=== PATIENT | female | born 1935 | race Caucasian/White ===

== ENCOUNTER 2025-06-15 11:33 | Outpatient (AMB) | payer MEDICARE, SELFPAY ==
--- NOTE | 2025-06-15 11:34 | AM.OFFWIN_ITS ---
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 She also complains of general fatigue and nasal congestion for a week and started mildly coughing today. Allergies amoxicillin Allergy (Mild, Verified 06/15/25 11:49) rash Do you need a note to return to daycare/school/sports/work: No HPI HPI Comments History of Present Illness Details History of Present Illness The patient is an 89 year old female with a past medical history of dementia, hypertension, hyperlipidemia, CKD stage 3, type 2 diabetes mellitus, COPD who presents with her daughter for eye symptoms and congestion. - The patient has been feeling unwell fo r about a week, initially with a head cold that seemed to subside. - She reports rhinorrhea, congestion, an d a nonproductive cough. - Over the past two to three days, she d eveloped itchy, watery eyes, red eyes. - She denies any fevers, chills, or shor tness of breath. - She denies any nausea, vomiting or nikita rrhea. - She denies eye pain or changes in visi on. She denies any FB sensation of the eyes. - She wears reading glasses, does not we ar any contact lenses. - The patient's other daughter, who she was recently in contact with, had conjunctivitis and a sinus infection. - She took Tylenol initially for her sym ptoms, however has since stopped taking it and has not taken any other medications. Review of Systems Constitutional: Negative for fevers or chills HENT: Reports congestion, rhinorrhea. Reports watery itchy red eyes. Denies eye pain or changes in vision. Denies sore throat, ear pain Respiratory: Reports cough. Denies shortness of breath, chest tightness, wheezing Cardiac: Negative for chest pain Gastrointestinal: Negative for abdominal pain, nausea, vomiting, diarrhea, Musculoskeletal: Negative for myalgias, Physical Exam General Appearance: Normal appearance, well developed. No acute distress HEENT: PEERLA. EOM intact. Conjunctival injection with mucopurulent discharge noted bilaterally. Eyelids inverted, No obvious FB noted. External ears WNL with moderate ear wax noted bilaterally. Clear nasal drainage noted. Postnasal drip observed. Oropharynx clear without erythema or exudate. Pulmonary: No respiratory distress. Clear to auscultation bilaterally. Speaking in full sentences Cardiac: Regular rate and rhythm. No murmurs. Musculoskeletal: Moving all extremities spontaneously and against gravity Mental Status: Alert and Oriented x 3 Psychiatric: Normal mood. Normal affect. Physical Exam Vital Signs: Last Vital Signs Temp 98 F 06/15/25 11:38 Pulse 64 06/15/25 11:38 Resp 16 06/15/25 11:38 BP 131/62 06/15/25 11:38 Pulse Ox 97 06/15/25 11:38 Oxygen Delivery Method Room Air 06/15/25 11:38 BMI result Body Mass Index 22.5 Assessment & Plan Assessment & Plan (1) Bacterial conjunctivitis of both eyes: Code(s): H10.9 - Unspecified conjunctivitis (2) Upper respiratory infection: Code(s): J06.9 - Acute upper respiratory infection, unspecified Qualifiers: URI type: unspecified URI Qualified Code(s): J06.9 - Acute upper respiratory infection, unspecified Plan Assessment and Plan 1. Bacterial Conjunctivitis - The plan is to start Polytrim antibiotic eye drops, one drop in both eyes four times a day for one week. - The patient was counseled on the contagious nature of the condition, emphasizing hand hygiene, avoiding touching the eyes, and washing personal items like towels and pillowcases. - The use of warm compresses 3-4 times a day for 10-15 minutes was also recommended. - If symptoms do not improve in 48 hours or if vision worsens, the patient is to return for re-evaluation. 2. Upper Respiratory Infection - The patient has symptoms of an upper respiratory infection including congestion and postnasal drip, with clear lungs on examination. - Patient symptoms have been improving. - The plan is to continue supportive care, including rest and staying well- hydrated. - The patient should return if she develops fever, worsening cough, or trouble breathing. Patient was informed and verbally consented to the use of an ambient scribe for clinic note documentation during the visit. Medications: New polymyxin B sulf-trimethoprim 10,000 unit- 1 mg/mL while awake 1 drp ophthalmic (eye) QID 10 mL 0RF 7 days Coding Level of Care Code New Pt Level 3 (10322) Diagnoses Bacterial conjunctivitis of both eyes H10.9 Upper respiratory tract infection, unspecified type J06.9 URI type: unspecified URI
[2025-06-15 11:38] VITALS: BP 131/62; PULSE 64; RESP 16; TEMP 36.6; O2SAT 97; BMI 22.5
--- OUTSIDE RECORDS SUMMARY | 2025-06-15 15:17 | XMS_ITS | Clinical Summary ---
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 Role Phone Jorge Barlow MD Primary Care Provider [phone] Encounters Date Type Department Care Team Description 05/18/2025 2:53 PM EST - 05/18/2025 11:59 PM EST Hospital Encounter [facility] Ultrasound [address] [place] [address] Left leg swelling Discharge Disposition: Home or Self Care from Last 3 Months Family History Medical History Relation Name Comments CABG Brother Heart attack Brother Prostate cancer Brother Heart attack Father Breast cancer Mother Relation Name Status Comments Brother Father Mother Social History Tobacco Use Types Packs/Day Years Used Date Smoking Tobacco: Never Smokeless Tobacco: Never Alcohol Use Standard Drinks/Week Comments No 0 (1 standard drink = 0.6 oz pur e alcohol) Comments Unknown Sex and Gender Information Value Date Recorded Sex Assigned at Not on file Legal Sex Female 1:10 PM EST Gender Identity Not on file Sexual Orientation Not on file Plan of Treatment Health Maintenance Due Date Last Done Comments DTaP,Tdap,and Td Vaccines (1 - Tdap) 1954 RSV Immunization Adult Patients (1 - 1-dose 75+ series) 2012 Pneumococcal Vaccine: 50+ Years (2 of 2 - PCV) 05/28/2018 05/28/2017 Cholesterol Screening (Lipid Panel) 05/29/2022 Falls Risk Assessment 05/29/2022 Medicare Annual Wellness Visit 05/29/2022 Osteoporosis Screening (Bone Density Screening) 05/29/2022 Social Influencers of Health Screening 05/29/2022 Depression Screening 07/01/2024 COVID-19 Vaccine ( season) 2025 04/18/2021, 08/25/2020, 08/04/2020 Zoster Vaccines Completed 10/10/2020, 05/18/2020 Influenza Vaccine Completed 04/22/2025, , 04/08/2023, Additional history exists HIB Vaccines Aged Out No longer eligi ble based on patient's age to complete this topic HPV Vaccines Aged Out No longer eligi ble based on patient's age to complete this topic Hepatitis A Vaccines Aged Out No long er eligible based on patient's age to complete this topic Hepatitis B Vaccines Aged Out No long er eligible based on patient's age to complete this topic IPV Vaccines Aged Out No longer eligi ble based on patient's age to complete this topic MMR Vaccines Aged Out No longer eligi ble based on patient's age to complete this topic Meningococcal ACWY Vaccine Aged Out N o longer eligible based on patient's age to complete this topic Meningococcal B Vaccine Aged Out No l onger eligible based on patient's age to complete this topic RSV Immunization Patients Under 20 months Aged Out No longer eligible based on patient's age to complete this topic Varicella Vaccines Aged Out No longer eligible based on patient's age to complete this topic Procedures Procedure Name Priority Date/Time Associated Diagnosis Comments VAS US DUPLEX LOWER EXT VENOUS LEFT Routine 05/18/2025 3:24 PM EST Left leg swelling from Last 3 Months Results * Vascular US duplex lower extremity venous left (05/18/2025 3:24 PM EST) Anatomical Region Laterality Modality Vascular, Abdomen Ultrasound 05/18/2025 3:44 PM EST Impressions 05/18/2025 3:45 PM EST NO LEFT LOWER EXTREMITY DEEP VENOUS THROMBOSIS. -------- FINAL REPORT -------- Dictated By: BRIA NOLAN Dictated Date: 05/18/2025 15:44 ET Assigned Physician: BRIA NOLAN Reviewed and Electronically Signed By: BRIA NOLAN Signed Date: 05/18/2025 15:45 ET Workstation ID: [id number] Transcribed By: Self Edit Transcribed Date: 05/18/2025 15:44 ET Narrative 05/18/2025 3:45 PM EST PROCEDURE: VAS US DUPLEX LOWER EXT VENOUS LEFT INDICATION: Swelling TECHNIQUE: 2-D and color Doppler imaging of the left lower extremity venous vasculature with compression and augmentation maneuvers. COMPARISON: No priors available. FINDINGS: There is normal flow, compression, and augmentation from the common femoral through the popliteal vein. Visualized calf veins are patent Procedure Note Bria Nolan MD - 05/18/2025 PROCEDURE: VAS US DUPLEX LOWER EXT VENOUS LEFT INDICATION: Swelling TECHNIQUE: 2-D and color Doppler imaging of the left lower extremityvenous vasculature with compression and augmentation maneuvers. COMPARISON: No priors available. FINDINGS: There is normal flow, compression, and augmentation from the commonfemoral through the popliteal vein. Visualized calf veins are patent IMPRESSION: NO LEFT LOWER EXTREMITY DEEP VENOUS THROMBOSIS. 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
== END 2025-06-15 12:16 | disposition home or self-care (01) ==
PROVIDERS: PCP Student in an Organized Health Care Education/Training Program; Visit Provider Family Medicine
DX: H10.9 Unspecified conjunctivitis (principal); J06.9 Acute upper respiratory infection, unspecified

== ENCOUNTER → 2025-06-15 11:33 | Outpatient (BNVA) | payer MEDICARE, SELFPAY | PROVIDERS: PCP Student in an Organized Health Care Education/Training Program; Visit Provider Family Medicine | DX: J06.9 Acute upper respiratory infection, unspecified (principal); H10.9 Unspecified conjunctivitis | CPT/HCPCS: 99202 ==

== ENCOUNTER 2025-06-21 13:15 | Outpatient (REF) | payer MEDICARE, SELFPAY ==
[2025-06-21 18:12] LABS: MANUAL DIFF FLAG NO
[2025-06-21 18:21] LABS: Hematocrit 36.0 % (37.0-47.0); Hemoglobin 11.7 g/dl (12.0-16.0); Imm Gran Abs Auto 0.04 X10*3/uL (0.00-0.03); Imm Gran Pct Auto 0.5 % (0.0-0.4); Lymphocytes Absolute Auto 1.8 X10*3/uL (1.2-4.9); Mean Corpuscular HGB Conc 32.5 g/dl (31.0-35.0); Mean Corpuscular Hemoglobin 28.7 pg (27.0-33.0); Mean Corpuscular Volume 88.5 fL (80.0-98.0); NRBC Abs Auto 0.000 X10*3/uL (0.0-0.012); NRBC Pct Auto 0.0 /100WBC (0.0-0.2); Platelet Count 341 X10*3/uL (160-400); Red Blood Count 4.07 X10*6/uL (4.20-5.50); White Blood Count 8.6 X10*3/uL (4.8-10.8)
[2025-06-21 18:48] LABS: Microalbum/Creatinine Ratio Ur 61.1 ug/mg cr (<30)
[2025-06-21 18:52] LABS: Appearance Urine Clear; Glucose Urine UA Negative (Negative); PH 6.5 (5.0-9.0); Specific Gravity - Urine <= 1.005 (1.005-1.025); UMIC TRIGGER UACC YES
[2025-06-21 18:54] LABS: Alanine Aminotransferase 14 U/L (0-31); Albumin Level 4.3 g/dL (3.5-5.0); Alkaline Phosphatase 110 U/L (39-117); Anion Gap 15 (12-20); Aspartate Amino Transferase 22 U/L (5-31); Blood Urea Nitrogen 20 mg/dL (9-16); Calcium 9.0 mg/dL (8.4-10.2); Carbon Dioxide 26 mmol/L (22-29); Chloride 104 mmol/L (96-108); Cholesterol 125 mg/dL (<200); Estimated Glomerular Filt Rate 54; HDL Cholesterol 38 mg/dL (>40); Magnesium 1.8 mg/dL (1.6-2.6); Potassium 3.3 mmol/L (3.3-5.1); Sodium 142 mmol/L (135-145); Total Protein 7.4 g/dL (6.5-8.0); Triglycerides 132 mg/dL (<150)
[2025-06-21 19:12] LABS: UACC Culture Trigger YES
[2025-06-21 19:13] LABS: Folate 11.8 ng/mL (> or = 4.0); Vitamin B12 589 pg/mL (200-900)
[2025-06-22 03:44] LABS: Syphilis Screen Nonreactive (Nonreactive)
[2025-06-22 04:11] LABS: HBS Num1 0.00 mIU/mL (0-7.99); HBsAGNum1 0.36 S/CO (0.00-0.99); HIV Num 1 0.09 S/CO (0.00-0.99); Hepatitis B Surface Antigen Negative (Negative); ~HepC Num1 0.11 S/CO (0.00-0.79); ~Hepatitis B Surface Antibody NONREACTIVE (Nonreactive); ~Hepatitis C Antibody Nonreactive (Nonreactive)
[2025-06-26 06:38] LABS: Vitamin D 25-OH, D2 <4 ng/mL; Vitamin D 25-OH, D3 34 ng/mL; Vitamin D 25-OH, Total 34 ng/mL (30-100)
== END 2025-06-21 13:16 | disposition home or self-care (01) ==
LOC: HO.HKASLDS 13:15
PROVIDERS: PCP Student in an Organized Health Care Education/Training Program; Visit Provider Student in an Organized Health Care Education/Training Program
DX: E11.22 Type 2 diabetes mellitus with diabetic chronic kidney disease (principal); F03.90 Unspecified dementia, unspecified severity, without behavioral disturbance, psychotic disturbance, mood disturbance, and anxiety; I12.9 Hypertensive chronic kidney disease with stage 1 through stage 4 chronic kidney disease, or unspecified chronic kidney disease; N18.9 Chronic kidney disease, unspecified; F32.A Depression, unspecified; J06.9 Acute upper respiratory infection, unspecified; R41.89 Other symptoms and signs involving cognitive functions and awareness; J44.9 Chronic obstructive pulmonary disease, unspecified; D35.1 Benign neoplasm of parathyroid gland; H10.9 Unspecified conjunctivitis; Z87.81 Personal history of (healed) traumatic fracture; Z13.1 Encounter for screening for diabetes mellitus
CPT/HCPCS: 36415; 80053; 80061; 81001; 81003; 82043; 82306; 82570; 82607; 82746; 83036; 83735; 84443; 85025; 86706; 86780; 86803; 87086; 87088; 87186; 87340; 87389; 96127; 99202

== ENCOUNTER 2025-06-21 13:15 | Outpatient (AMB) | payer MEDICARE, SELFPAY ==
--- NOTE | 2025-06-21 13:19 | MHC.PC.OV ---
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: No Accompanied by: Self / Same As Patient Allergies amoxicillin Allergy (Mild, Verified 06/21/25 13:21) rash Medication List - Last Reconciled 06/21/25 by Florentin Rendon MD amlodipine 2.5 mg PO DAILY atenolol 25 mg PO DAILY donepezil 10 mg PO DAILY fluticasone furoate-vilanterol 100-25 mcg/dose (Breo Ellipta) 1 ea inhalation DAILY furosemide 20 mg PO DAILY metformin 500 mg PO DAILY polymyxin B sulf-trimethoprim 10,000 unit- 1 mg/mL 1 drp ophthalmic (eye) QID 7 days rosuvastatin 10 mg PO BEDTIME valsartan 160 mg PO DAILY Tobacco use date assessed: 06/21/25 Fall risk assessment: 1 Fall in past year Last assessed Fall Risk: 06/21/25 Dental Screening Dental Screen Date: 06/21/25 Did you have a dental visit in the last 12 months?: Yes Did you have a dental problem in the last 6 months where you did not have access to dental care?: No Was dental information given to patient?: Patient has dentist HPI HPI Comments History of Present Illness Details History of Present Illness The patient is an 89 year old female presenting to [facility] care. Mild Stage Dementia: The patient's family history is significant for dementia. In March 2023, she reported mild short-term memory loss, and a brain MRI in May 2023 showed mild symmetric cerebral atrophy and chronic microvascular ischemia. 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 She is followed by a memory clinic every six months and takes donepezil 10 mg daily. Her functional status has declined, with increased difficulty in managing daily activities like meal preparation and a need for greater supervision. Hypertension: The patient has a longstanding history of hypertension. She was referred to nephrology in 2018 for management, where a workup included lab work, 24-hour ambulatory blood pressure monitoring, and a renal sonogram. Her condition has been managed with various medications, including atenolol, valsartan, amlodipine, and furosemide. During a COVID-19 infection in December 2023, her antihypertensive medications were temporarily held due to low blood pressure. 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 Her renal function was noted to be stable under nephrology care, which involved close monitoring, a low-sodium diet, and avoidance of NSAIDs. Her daughter reports that recent blood work from March showed a low kidney function reading. Chronic Obstructive Pulmonary Disease: In 2020, the patient developed new-onset shortness of breath on exertion. A cardiac workup including an echo and a normal stress test initially attributed the dyspnea to diastolic dysfunction. However, a pulmonary consultation in 2020, based on pulmonary function testing, led to a diagnosis of moderate COPD as the likely cause of her symptoms. She is treated with a Breo Ellipta inhaler. Depression: The patient's daughter raises a new concern about depression, noting the patient has trouble getting out of bed and getting dressed, even with no plans to go out. The patient is not currently being treated for depression and is not seeing a therapist. Upper Respiratory Infection and Conjunctivitis: The patient recently visited an urgent care facility on Saturday for a severe cold that began after Thanksgi. Symptoms included severe conjunctivitis with red eyes, for which she was given eye drops for a seven-day course, and significant nasal congestion with a sensation of plugged ears. Her daughter reports she is at the end of the illness, but has been sick on and off since late May. Left Patellar Fracture: The patient sustained a mechanical fall at home on April 03, 2019, resulting in a displaced transverse fracture of the left patella. This was superimposed on moderate osteoarthritis and was treated conservatively by orthopedics. Left Parathyroid Adenoma: In August 2021, during an ED visit for vertigo, an incidental 1.4 cm left parathyroid adenoma was discovered on a neck CT. Outpatient follow-up was recommended but was not pursued. Surgical History: - None reported. Medications: - Donepezil (Aricept) 10 mg daily for dementia - Atenolol for hypertension - Valsartan for hypertension - Amlodipine for hypertension - Breo Ellipta for COPD - Unspecified statin for hyperlipidemia - Metformin for type 2 diabetes - Furosemide for hypertension - Unspecified eye drops for conjunctivitis - Unspecified [id number] allergy medication as needed Social History: - Functional Status: The patient's functional status has declined, with increasing difficulty in managing activities of daily living such as meal preparation. - Caregiver Support: Her daughter, Diana, is her primary caregiver. - Living Situation: Lives with her daughter; prior safety recommendations include arranging for a weekend research and development tester, using home cameras, and obtaining a Life Alert with fall detection. - Activity Level: Recently stopped volunteering at the hospital and walking with a neighbor, which she attributes to the cold weather. - Substance Use: Denies any history of smoking. 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 Family History: - Dementia: Significant family history noted. Diagnostic Results: - Colonoscopy (2006, 2011): Noted diverticulosis of the sigmoid colon. - Holter Monitor (2016): Predominant sinus rhythm with occasional PVCs and other supraventricular tachycardia. - Renal Sonogram (2018): Performed as part of a nephrology workup. - 24-hour Ambulatory Blood Pressure Monitoring (2018): Performed as part of a nephrology workup. - CT and X-ray of Left Knee (Mar 2019): Showed a displaced transverse fracture of the left patella superimposed on moderate osteoarthritis. - Echocardiogram (August 2020): Normal left ventricular systolic function, moderately abnormal diastolic function, and mildly dilated left atrium. - Stress Test (September 2020): Normal. - Pulmonary Function Testing (2020): Led to a diagnosis of moderate COPD. - CT Head and Angiogram of Neck (August 2021): No evidence of stroke or vascular occlusion; showed an incidental 1.4 cm left parathyroid adenoma. - Brain MRI (May 2023): Revealed mild symmetric cerebral atrophy and changes of chronic microvascular ischemia. - Jairo Cognitive Assessment (MOCA): Score of 17/30. - DEXA scan (past): Results were good. Past Medical History - Hypertension, long-standing - Hyperlipidemia - Diverticulosis of the sigmoid colon - Paroxysmal supraventricular tachycardia and occasional PVCs - Chronic Kidney Disease, stage 3, diagnosed 2018 - Displaced transverse fracture of the left patella with moderate osteoarthritis, status post mechanical fall in 2018, managed conservatively - Diastolic dysfunction and mildly dilated left atrium - Moderate Chronic Obstructive Pulmonary Disease, diagnosed 2020 - Peripheral vertigo, episode in 2021 - Left parathyroid adenoma, 1.4 cm, incidental finding in 2021, not followed up - Mild Stage Dementia, 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 - Pap smears: History of normal results; screening has been discontinued. - Colonoscopies: Last performed in 2011. - Bone Density: A past DEXA scan was reportedly good. - Immunizations: She has received her annual flu vaccine. - Safety: Due to cognitive decline, previous provider recommended safety measures including a weekend research and development tester, home cameras, and Life Alert. [facility] Family History (Updated 06/21/25 @ 13:29 by Surjit Shipley MA) Father Heart attack Mother Breast cancer Social History Housing: House Patient Tobacco Use Status: Never used Tobacco service: No Current occupational status: retired Cognitive needs: No Hearing needs: No Vision needs: Yes (reading glasses) Questionnaire PHQ-9 Over the last 2 weeks, how often have you been bothered by any of the following problems? 1. Little interest or pleasure in doing things: not at all 2. Feeling down, depressed, or hopeless: not at all 3. Trouble falling or staying asleep, or sleeping too much: not at all 4. Feeling tired or having little energy: not at all 5. Poor appetite or overeating: not at all 6. Feeling bad about yourself - or that you are a failure or have let yourself or your family down: not at all 7. Trouble concentrating on things, such as reading the newspaper or watching television: not at all 8. Moving or speaking so slowly that other people could have noticed. Or the opposite - being so fidgety or restless that you have been moving around a lot more than usual: not at all 9. Thoughts that you would be better off or of hurting yourself in some way: not at all Total score: 0 Depression Screening Interpretation: Negative Depression Screening Done: Yes Source: Developed by Drs. Denny Rosa, Donavan Maradiaga and colleagues, with an educational steve from [employer]. Thrive Questionnaire Date Thrive assessed: 06/21/25 I am a: Patient What is your living situation today?: I have a steady place to live Within the past 12 months, did the food you bought not last and you didn't have the money to get more?: Never true Within the past 12 months, did you worry whether your food would run out before you got money to buy more?: Never true Do you have trouble paying for medicines?: No Do you have trouble getting transportation to medical appointments?: No Do you have trouble paying your heating and electricity bill?: No Do you have trouble taking care of your child, family member or friend?: No Do you have trouble with day-to-day activities such as bathing, preparing meals, shopping, managing finances, etc.?: No Are you currently unemployed and looking for a job?: No Are you interested in more education?: No Please select the resources that you would like help with: None Currently or been in a relationship where the following occur: No concerns reported THRIVE Score: 0 AUDIT C Alcohol Use Questionnaire (AUDIT-C) 1. How often do you have a drink containing alcohol?: Never Total Score: 0 DMITRI-7 AMB Questionnaire DMITRI-7 Date DMITRI - 7 assessed: 06/21/25 Feeling nervous, anxious, or on edge: 0 = Not at all Not being able to stop or control worryin = Not at all Worrying too much about different things: 0 = Not at all Trouble relaxin = Not at all Being so restless that it is hard to sit still: 0 = Not at all Becoming easily annoyed or irritable: 0 = Not at all Feeling afraid as if something awful might happen: 0 = Not at all Total DMITRI-7 score (0-4 normal; 5-9 mild; 10-14 moderate; 15-21 severe): 0 Source: Developed by Drs. Denny Rosa, Donaavn Maradiaga and colleagues, with an educational steve from [employer]. Review of Systems Narrative Review of Systems - Eyes: Reports improving ocular redness after treatment for conjunctivitis. - Ears, Nose, Throat: Reports bilateral ear fullness, sensation of being plugged, and hearing difficulty. - Reports severe nasal congestion. - Denies cough. - Respiratory: Reports a history of dyspnea on exertion. - Gastrointestinal: Reports daily bowel movements. - Denies abdominal pain. - Genitourinary: Reports normal urination. - She is postmenopausal. - Neurological: Reports a history of vertigo and progressive short-term memory loss. - Psychiatric: Daughter reports symptoms consistent with depression, including apathy and difficulty initiating activities. - Sleep: Reports sleeping well. 10-point ROS reviewed and negative except as noted in HPI Physical exam (Primary Care) Vital Signs: Last Vital Signs Temp 98 F 06/21/25 13:20 Pulse 67 06/21/25 13:20 Resp 16 06/21/25 13:20 BP 143/67 H 06/21/25 13:20 Pulse Ox 98 06/21/25 13:20 Oxygen Delivery Method Room Air 06/21/25 13:20 BMI result Body Mass Index 22.8 Tobacco/Smoking Status: Tobacco use Status Tobacco use date assessed 06/21/25 06/21/25 13:34 Patient Tobacco Use Status Never used Tobacco 06/21/25 13:34 PHQ-9: PHQ-9 Score PHQ-9: Total score 0 06/21/25 22:30 Depression Screening Interpretation: Negative Thrive Assessment: Date of Thrive Assessment Date Thrive assessed 06/21/25 06/21/25 13:34 Currently or been in a relationship where the following occur: No concerns reported Narrative Physical Exam General: Well-appearing, in no acute distress. Vital signs: Within normal limits. HEENT: Normocephalic, atraumatic. PERRLA, EOMI. Conjunctiva clear, sclera anicteric. Oropharynx clear, mucous membranes moist. TMs intact bilaterally. Eyes are red, likely due to conjunctivitis. Neck: Supple, no lymphadenopathy, no thyromegaly, no JVD or carotid bruits. Cardiovascular: RRR, normal S1/S2, no murmurs, rubs, or gallops. Peripheral pulses 2+ and symmetric. No edema. Respiratory: Lungs clear to auscultation bilaterally, no wheezes, rales, or rhonchi. Normal effort. Abdomen: Soft, non-tender, non-distended. Normoactive bowel sounds. No hepatosplenomegaly, no masses. MSK: Full range of motion, no joint swelling or deformity. Normal gait. Left knee pain and swelling noted from previous injury. Skin: Warm, dry, intact. No rashes, lesions, or pallor. Neuro: Alert and oriented x3. Cranial nerves II-XII intact. Strength 5/5 throughout. Sensation intact. Reflexes 2+ symmetric. Normal coordination and gait. Psych: Appropriate mood and affect. Normal judgment and insight. Noted cognitive decline and depression symptoms. Coding Level of Care Code New Pt Level 4 (13232) Add On Problem Visit Only Diagnoses Cognitive decline R41.89 Dementia F03.90 Hypertension I10 CKD (chronic kidney disease) N18.9 COPD (chronic obstructive pulmonary disease) J44.9 Depression F32.A Diabetes type 2 E11.9 Parathyroid adenoma D35.1 Conjunctivitis H10.9 Assessment & Plan Assessment & Plan (1) Cognitive decline: Code(s): R41.89 - Other symptoms and signs involving cognitive functions and awareness Category: Medical (2) Dementia: Code(s): F03.90 - Unspecified dementia, unspecified severity, without behavioral disturbance, psychotic disturbance, mood disturbance, and anxiety Category: Medical (3) Hypertension: Code(s): I10 - Essential (primary) hypertension Category: Medical (4) CKD (chronic kidney disease): Code(s): N18.9 - Chronic kidney disease, unspecified Category: Medical (5) COPD (chronic obstructive pulmonary disease): Code(s): J44.9 - Chronic obstructive pulmonary disease, unspecified Category: Medical (6) Depression: Code(s): F32.A - Depression, unspecified Category: Medical (7) Diabetes type 2: Code(s): E11.9 - Type 2 diabetes mellitus without complications Category: Medical (8) Parathyroid adenoma: Code(s): D35.1 - Benign neoplasm of parathyroid gland Category: Medical (9) Conjunctivitis: Code(s): H10.9 - Unspecified conjunctivitis Category: Medical Plan Consent Verbal consent was obtained from the patient and her daughter, who is her caregiver, for the physical examination and for baseline laboratory studies. The rationale for testing was explained as establishing a baseline for her ongoing care. Patient was informed and verbally consented to the use of an ambient scribe for clinic note documentation during this visit. Plan 1. Establishment Of Care - A comprehensive baseline laboratory panel was ordered, including a complete blood count, comprehensive metabolic panel, hemoglobin A1c, lipid panel, thyroid panel, vitamin B12, folate, vitamin D, and screening for hepatitis B, hepatitis C, and syphilis. - The patient and her daughter were informed that the lab work can be done today without fasting. - A follow-up visit is scheduled in two weeks to review the lab results and establish an ongoing care plan. 2. Cerumen Impaction - Bilateral cerumen impaction was identified as the likely cause of her ear fullness and hearing difficulty. - Prescribed Debrox drops, to be used five drops in each ear twice a day for five days before the next visit to soften the cerumen for potential removal. 3. Depression And Cognitive Decline - The patient's daughter reported new symptoms concerning for depression, including apathy and difficulty with activities of daily living. - The ordered baseline labs (thyroid, B12, folate, vitamin D) will screen for reversible causes of mood and cognitive changes. - Further assessment and management will be addressed at the follow-up visit after lab results are available. - The patient will continue taking donepezil 10 mg daily for dementia. 4. Upper Respiratory Infection And Conjunctivitis - The patient is at the end of her URI symptoms and conjunctivitis. - Advised to complete the full seven-day course of the prescribed eye drops. - No new medications were prescribed for residual symptoms. Discussion Notes I met with the patient and her daughter, who serves as her caregiver, for this new patient visit. I reviewed a comprehensive summary of her past medical records with them, confirming the accuracy of her extensive history. I explained my plan to establish a current baseline by ordering a comprehensive set of labs to check her blood counts, kidney and liver function, electrolytes, blood sugar control, cholesterol, thyroid, and cook vitamin levels. I discussed my physical exam findings, particularly the bilateral impacted cerumen, explaining that this is likely causing her symptoms of ear fullness and difficulty hearing. I prescribed Debrox drops and provided instructions for use to soften the wax ahead of her follow-up appointment, at which time I may perform an irrigation. I acknowledged the daughter's concerns regarding new depressive symptoms and explained that the ordered lab work will help rule out underlying medical causes. We agreed to address this issue more thoroughly at our next visit. I scheduled a follow-up appointment in two weeks to review all results and finalize her ongoing care plan. Patient Instructions - Please go to the lab located in the building today to have your blood drawn. - You do not need to fast (avoid eating) before the blood test. - For your earwax, use Debrox ear drops. - Put 5 drops in each ear twice a day. - Please use these drops for 5 days before your next appointment with me. - Continue to take your eye drops until you finish the seven-day course. - Please schedule a follow-up appointment to see me again in two weeks to discuss your test results. Medical Decision Making The patient is an 89-year-old female with a complex medical history, including mild dementia, stage 3 CKD, COPD, and hypertension, who presents with her daughter to establish care. The primary goal of this visit is to establish a comprehensive baseline of her current health status, given her multiple comorbidities and recent transition from her long-term PCP. I have ordered a full panel of labs, including CBC, CMP, HbA1c, lipids, TSH, B12, folate, and Vitamin D to assess her chronic conditions and overall health. A new concern for depression was raised by the daughter, with symptoms of apathy and avolition. While this may be a progression of her dementia, it is prudent to first rule out reversible metabolic or endocrine causes. The ordered labs for TSH, vitamin B12, and vitamin D will help investigate this possibility before considering psychiatric medication changes. The physical exam revealed significant bilateral cerumen impaction, which directly correlates with her subjective complaints of ear fullness and hearing difficulty. I have prescribed Debrox to soften the cerumen, which will facilitate a less traumatic removal at the follow-up visit if still required. Her existing chronic conditions appear to be managed on her current medication regimen, which she will continue. The new lab results will provide an updated assessment of her renal function, glycemic control, and lipid status. A follow-up is scheduled in two weeks to review all data and formulate a long-term management strategy. Total Time Statement 45 min Total time spent caring for the patient today includes pre-visit chart review, documentation, review of laboratory and diagnostic imaging results, medication reconciliation, medically necessary evaluation, counseling on diagnoses, care coordination, ordering appropriate tests and medications, review of tests performed by other providers, reporting test results to the patient, and communication with other healthcare providers. Orders: Orders Syphilis Screen 06/21/25 Z13.9 - Encounter for screening, unspecified Comprehensive Met. Panel 06/21/25 Z13.9 - Encounter for screening, unspecified Hepatitis C Antibody 06/21/25 Z13.9 - Encounter for screening, unspecified TSH reflex Free T4 06/21/25 Z13.9 - Encounter for screening, unspecified HIV Ab/Ag 06/21/25 Z13.9 - Encounter for screening, unspecified UA CC w/rflx Micro + Cult 06/21/25 Z13.9 - Encounter for screening, unspecified Lipid Panel 06/21/25 Z13.9 - Encounter for screening, unspecified Hemoglobin A1c 06/21/25 Z13.9 - Encounter for screening, unspecified Hepatitis B Surface Antibody 06/21/25 Z13.9 - Encounter for screening, unspecified Vitamin D 25-OH (D2 and D3) 06/21/25 Z13.9 - Encounter for screening, unspecified Microalbumin, Random (w Creat) 06/21/25 Z13.9 - Encounter for screening, unspecified Complete Blood Count Auto Diff 06/21/25 Z13.9 - Encounter for screening, unspecified Hepatitis B Surface Antigen 06/21/25 Z13.9 - Encounter for screening, unspecified Vitamin B12 and Folate 06/21/25 Z13.9 - Encounter for screening, unspecified Magnesium 06/21/25 Z13.9 - Encounter for screening, unspecified Medications: New carbamide peroxide 6.5% (Debrox) 5 drps otic (ears) Q12H 15 mL 0RF 5 days
[2025-06-21 13:20] VITALS: BP 143/67; PULSE 67; RESP 16; TEMP 36.6; O2SAT 98; BMI 22.8
--- OUTSIDE RECORDS SUMMARY | 2025-06-21 16:38 | XMS_ITS | Clinical Summary ---
Author Organization [facility] Address [address] [place] [address] Phone Care Team Providers Care Principal Consulting Engineer Name Role Phone Jorge Barlow MD Primary Care Provider Encounters Date Type Department Care Team Description 05/18/2025 2:53 PM EST - 05/18/2025 11:59 PM EST Hospital Encounter [facility]ound [address] [place] [address] Left leg swelling Discharge Disposition: [...] Signed Date: 05/18/2025 15:45 ET Workstation ID: [id number] Transcribed By: Self Edit Transcribed Date: 05/18/2025 [...] Signed Date: 05/18/2025 15:45 ET Workstation ID: [id number] Transcribed By: Self Edit Transcribed Date: 05/18/2025 15:44 ET Jorge Barlow MD CV VASCULAR PROCEDURES Final Result from Last 3 Months Insurance MEDICARE [facility] Care Teams Principal Consulting Engineer Relationship Specialty Start Date End Date Jorge Barlow MD [address] [place] [address] PCP - General Internal Medicine 05/17/25
== END 2025-06-21 14:05 | disposition home or self-care (01) ==
LOC: HO.HMCFMS 13:15
PROVIDERS: PCP Student in an Organized Health Care Education/Training Program; Visit Provider Student in an Organized Health Care Education/Training Program
DX: R41.89 Other symptoms and signs involving cognitive functions and awareness (principal); F03.90 Unspecified dementia, unspecified severity, without behavioral disturbance, psychotic disturbance, mood disturbance, and anxiety; I12.9 Hypertensive chronic kidney disease with stage 1 through stage 4 chronic kidney disease, or unspecified chronic kidney disease; N18.9 Chronic kidney disease, unspecified; J44.9 Chronic obstructive pulmonary disease, unspecified; F32.A Depression, unspecified; E11.9 Type 2 diabetes mellitus without complications; D35.1 Benign neoplasm of parathyroid gland; H10.9 Unspecified conjunctivitis